=== PATIENT | female | born 1955 | race Caucasian/White ===

== ENCOUNTER 2017-05-16 10:59 | Inpatient (IN) | payer OTHER ==
[~2017-05-16] VITALS: Ht 165.1 cm; Wt 59.0 kg
[2017-05-16] MEDS ORDERED: ASPIRIN 81 MG TAB.CHEW PO STA (11:30)
[2017-05-16 11:41] LABS: BASOPHILS % (AUTO) 0.5 % (0.0-2.0); EOSINOPHILS % (AUTO) 0.7 % (0.0-6.0); HEMATOCRIT 35 % (33-45); HEMOGLOBIN 12.3 g/dL (11.5-14.8); LYMPHOCYTES # (AUTO) 1.2 /CMM (0.8-4.8); MEAN CORPUSCULAR HEMOGLOBIN 30 PG (26.0-33.0); MEAN CORPUSCULAR HGB CONC 35 g/dl (31.0-36.0); MEAN CORPUSCULAR VOLUME 87 fL (82-100); MONOCYTES # (AUTO) 0.4 /CMM (0.1-1.30); MONOCYTES % (AUTO) 10.3 % (2.0-12.0); NEUTROPHILS # (AUTO) 2.3 /CMM (1.8-8.9); NEUTROPHILS % (AUTO) 58.5 % (43.0-81.0); PLATELET COUNT (AUTO) 293 /CMM (150-450); RDW COEFFICIENT OF VARIATION 12.6 (11.5-15.0); RED BLOOD CELL COUNT(AUTO) 4.07 MIL/uL (4.0-5.2); WHITE BLOOD COUNT (AUTO) 3.9 K/uL (4.3-11.0)
[2017-05-16] MEDS ORDERED: ASPIRIN 81 MG TAB.CHEW ONE (11:49)
[2017-05-16 11:51] LABS: CALCIUM, SERUM 9.1 mg/dL (8.5-10.1); CARBON DIOXIDE 28 mmol/L (21-32); CHLORIDE 103 mmol/L (98-107); CREATININE 0.5 mg/dL (0.6-1.3); GLUCOSE 97 mg/dL (74-106); POTASSIUM 3.5 mmol/L (3.5-5.1); SODIUM SERUM 138 mmol/L (136-145); UREA NITROGEN, BLOOD 7 mg/dL (7-18)
[2017-05-16 11:59] LABS: TROPONIN I < 0.017 ng/mL (0.00-0.056)
[2017-05-16 12:04] LABS: B-TYPE NATRIURETIC PEPTIDE 72 PG/ML (0-125)
[2017-05-16 12:06] LABS: D-DIMER 0.35 mg/L(FEU (0.17-0.50); INR 0.93 (0.87-1.13)
[2017-05-16 14:25] VITALS: BP 134/86
[2017-05-16] MEDS ORDERED: PANT40TA2 PO (16:36)
[2017-05-16] MEDS ORDERED: ASPI-1152 PO (16:36)
== END 2017-05-16 18:15 | disposition home or self-care (01) | DRG 243 ==
LOC: ER 11:01 → TELE 14:04
PROVIDERS: ADMIT Internal Medicine; ATTEND Internal Medicine
DX: K21.9 Gastro-esophageal reflux disease without esophagitis (principal)
CPT/HCPCS: 36415; 71045-TC; 80048-TC; 83880; 84484-TC; 85025-TC; 85378-TC; 85730-TC; 87081-TC; A4606; Z7610